=== PATIENT | female | born 1990 | race Two or more races ===

== ENCOUNTER 2023-03-20 20:13 | Emergency (ER) | payer OTHER ==
[~2023-03-20] VITALS: Ht 152.4 cm; Wt 70.3 kg
[2023-03-20] MEDS ORDERED: PRENATAL + DHA1 EAC1 (20:48)
== END 2023-03-20 23:41 | disposition home or self-care (01) ==
LOC: ER 20:13
DX: O36.4XX0 Maternal care for intrauterine death, not applicable or unspecified (principal)